=== PATIENT | male | born 1980 | race Two or more races ===

== ENCOUNTER 2021-02-17 11:02 | Outpatient (RCR) | payer OTHER, SELFPAY | END 2021-05-02 23:59 | LOC: IMMUN 11:02 | PROVIDERS: Referring Provider Family Medicine; Visit Provider Family Medicine | DX: Z23 Encounter for immunization (principal) | CPT/HCPCS: 0001A; 0002A; 91300 ==

== ENCOUNTER 2023-11-10 20:25 | Emergency (ER) | payer BC, SELFPAY ==
[2023-11-10 20:26] VITALS: BP 173/94; PULSE 116; RESP 16; TEMP 37.3; O2SAT 96; BMI 28.3
--- NOTE | 2023-11-10 22:28 | RAD_ITS ---
STUDY: X-RAY - UNILATERAL RIBS ( LEFT ) WITH CHEST REASON FOR EXAM: Male, 43 years old. L chest pain TECHNIQUE - RIBS: 4 view(s) of the ribs. TECHNIQUE - CHEST: PA COMPARISON: None. FINDINGS - RIBS: Normal visualized ribs without a demonstrated fracture. FINDINGS - CHEST: The lungs are clear and expanded. There is no demonstrated pleural abnormality. Normal size heart. Normal mediastinum and juan. Normal visualized pulmonary arteries. Normal visualized aortic arch and descending thoracic aorta. Normal visualized thoracic spine. Normal visualized ribs, clavicles, and shoulders. There is no demonstrated abnormality of the visualized soft tissue structures of the upper abdomen. RAD/Ribs Uni Min 3V w/PA Chest IMPRESSION: RIBS: Normal x-ray examination of the ribs. CHEST: Normal x-ray examination of the chest. Electronically Signed: Angel Noel MD at 22:43 EST Reading Location ID and State: [facility] / [place] Tel , Service support ,
--- NOTE | 2023-11-10 22:58 | EDS_ITS ---
HPI History of Present Illness Chief Complaint: Chest Other Informant: patient Narrative Narrative: Couple hours prior to arrival, patient had sudden onset of left lateral chest pain then was felt like a popping on the inside, it is caudal to his axilla, he states this started suddenly while he was coughing. He has been coughing for 3 weeks, it has been getting better, he states he had bronchitis and it is mostly better, I given to his who now is sick with it. He denies any dyspnea but it hurts with a deep breath. No pain with movement. PFSH PFSH Medical History no medical history Home Medications naproxen 500 mg tablet 500 mg PO BID PRN #12 tabs 11/11/23 [Rx Last Taken Unknown] Allergy/AdvReac Type Severity Reaction Status Date / Time No Known Allergies Allergy Verified 11/10/23 20:28 Surgical History no surgical history Social History Smoking Status: Never smoker ROS ROS ED Constitutional Constitutional ED: Denies chills or fever(s) Eyes Eyes: Denies change in vision or diplopia ENT ENT ED: Denies rhinorrhea or sore throat Cardiovascular Cardiovascular: Reports chest pain; Denies palpitations Respiratory/Chest Respiratory/Chest: Reports cough; Denies dyspnea Gastrointestinal Gastrointestinal: Denies abdominal pain, diarrhea, nausea or vomiting Genitourinary Genitourinary ED: Denies dysuria or hematuria Musculoskeletal Musculoskeletal: Denies back pain or neck pain Integumentary Denies abscess or rash Neurologic Neurologic: Denies headache(s), paresthesias or weakness Psychiatric Psychiatric: Denies anxiety or suicidal thoughts EXAM Physical Exam Const Vital Signs: 11/10/23 20:26 11/10/23 23:23 Temperature 99.1 F Temperature Source Temporal Pulse Rate 116 H 87 Respiratory Rate 16 18 Blood Pressure 173/94 H 153/89 H Blood Pressure Mean 120 110 Pulse Ox 96 97 Oxygen Delivery Method Room Air Room Air Positive well nourished and well developed General Appearance ED: well developed and NAD HEENT Reports moist mucous membranes normocephalic and atraumatic Eyes PERRL and EOMs intact bilaterally Neck full ROM and supple Chest Wall inspection of chest normal and palpation of chest normal Chest Narrative: No reproducible tenderness in the area of interest Resp normal respiratory effort and clear to auscultation bilaterally Resp Narrative: Seems to be diminished left apex compared with the right posteriorly no splinting with deep inspiration lungs clear Cardio regular rate, regular rhythm and no murmurs Rate: tachycardic GI non-tender and non-distended Auscultation: normoactive bowel sounds Palpation: soft Back/Spine no CVA tenderness General Back: other FROM Extremity normal to inspection General Extremety ED: Negative for edema, pulses abnormal or tenderness General Extremity: Negative for edema or pulses abnormal Neuro oriented x3, CN's II-XII intact bilaterally and no sensory deficits noted Sensorium / Orientation: awake and alert Motor Exam: strength 5/5 throughout Skin no rashes or lesions noted and no wounds Heart Score History: Slightly/Non-Suspicious ECG: Normal Age: </= 45 years Risk Factors: No Risk Factors Troponin: </= Normal Limit Score: 0 MDM MDM MDM Narrative Medical decision making narrative: Given the initial exam my concern was for pneumothorax. And also in the differential is a rib fracture, subluxation, intercostal muscle strain, so since we were obtaining a chest x-ray I obtained a whole rib series. 5 views my interpretation including a PA chest is normal, radiology in agreement, no pneumothorax visible. He was upright for these x-rays. Given this and his resting tachycardia, as I discussed with the patient and pulmonary embolus in the differential diagnosis as well although I think less likely given the history, I think we should rule it out because of his tachycardia. EKG was obtained and my interpretation is normal except for sinus tachycardia. D-dimer and basic labs were obtained. This is all noted and normal including D-dimer ruling out pulmonary embolus. At this time, the diagnosis that makes the most sense here for the history is that there is an intercostal muscle strain. Supportive care advised, pleurisy in the differential diagnosis but the treatment would be the same. Will put him on a short course of anti- inflammatories and advised close outpatient follow-up. Initially hypertensive but on recheck he is better 150s, and after Toradol he is feeling better and heart rate improved to 80s. Lab Data Attestation: I reviewed the patient's lab results. Labs: Laboratory Results - last 24 hr 11/10/23 23:11 WBC 9.9 RBC 5.07 Hgb 15.2 Hct 47.2 MCV 93.1 MCH 30.0 MCHC 32.2 RDW Std Deviation 43.3 RDW Coeff of [place] 12.7 Plt Count 263 MPV 8.9 Immature Gran % (Auto) 0.700 Neut % (Auto) 61.1 Lymph % (Auto) 27.1 [place] % (Auto) 6.5 Eos % (Auto) 3.8 Baso % (Auto) 0.8 Absolute Neuts (auto) 6.1 Absolute Lymphs (auto) 2.68 Nucleated RBC % 0 D-Dimer Quant (PE/DVT) 0.29 Sodium 139 Potassium 4.1 Chloride 106 Carbon Dioxide 31.0 Anion Gap 2 L BUN 17 Creatinine 1.32 H Estim Creat Clear Calc 78.38 Est GFR (MDRD) Af Amer 76 Est GFR (MDRD) Non-Af 63 BUN/Creatinine Ratio 12.9 Glucose 110 H Calcium 8.9 Troponin I High Sens 5 Radiography Diagnostic Testing: Clinical Impression(s) from Imaging Studies Ribs w/Chest X-Ray 11/10/23 22:28 IMPRESSION: RIBS: Normal x-ray examination of the ribs. CHEST: Normal x-ray examination of the chest. Electronically Signed: Angel Noel MD at 22:43 EST Reading Location ID and State: [facility] / [place] Tel , Service support , Rhythm Strip Rhythm Strip: Sinus Tach Rate: 113 Ectopy: None EKG Initial EKG: Attestation: I personally reviewed and interpreted this EKG as follows: Interpretation: No Acute Injury Pattern and Sinus Tachycardia Discharge Plan Triage Chief Complaint: Chest Other ED Provider: Roshan Gage Dx/Rx/DC Orders Clinical Impression: Intercostal muscle strain, Bronchitis Instructions: ED Chest Wall Strain Prescriptions: New naproxen 500 mg tablet 500 mg PO BID PRN Qty: 12 0RF Primary Care Provider: Dax Emmanuel Referrals: Dax Emmanuel MD [Primary Care Provider] - 1 Week if not improving Disposition Disposition: Home, Self Care
--- NOTE | 2023-11-10 23:00 | EKG12_ITS ---
Test Reason : CHEST DISCOMFORT Blood Pressure : / mmHG Vent. Rate : 113 BPM Atrial Rate : 113 BPM P-R Int : 126 ms QRS Dur : 082 ms QT Int : 308 ms P-R-T Axes : 060 056 024 degrees QTc Int : 422 ms Sinus tachycardia Otherwise normal ECG Confirmed by ALYSIA WALSH, DEREK ([id number]), health editor MARILYN PUGA ([id number]) on 11/11/2023 1:08:12 PM Referred By: Roshan Gage Confirmed By:DEREK HATFIELD MD
[2023-11-10] MEDS: Ketorolac 30 MG/ML Syringe IV (23:10)
[2023-11-10 23:19] LABS: Absolute Lymphocyte Count 2.68 X10^3/uL (0.83-4.51); Absolute Neutrophil Count 6.1 X10^3/uL (2.0-7.7); Basophil# 0.08 X10^3/uL; Basophil% 0.8 % (0-1); Eosinophil# 0.38 X10^3/uL; Eosinophils% 3.8 % (0-5); Hematocrit 47.2 % (40-54); Hemoglobin 15.2 g/dL (13.0-16.5); Lymphocyte # 2.68 X10^3/ul (0.83-4.51); Lymphocyte % 27.1 % (19-41); Mean Corp Hgb Conc 32.2 g/dL (32-36); Mean Corpuscular Volume 93.1 fL (80-94); Mean Platelet Vol. 8.9 fl (6.2-12.0); Monocyte# 0.64 X10^3/uL; Monocyte% 6.5 % (0-10); NRBC Flagged by Analyzer 0 % (0-5); Neutrophil # 6.05 X10^3/uL (2.7-7.7); Neutrophil % 61.1 % (47-70); Platelet Count 263 K/mm3 (150-450); RBC Distribution Width CV 12.7 % (11.6-14.6); RBC Distribution Width SD 43.3 fl (35.1-43.9); Red Blood Count 5.07 M/mm3 (4.6-6.2); White Blood Count 9.9 K/mm3 (4.4-11.0)
[2023-11-10 23:23] VITALS: BP 153/89; PULSE 87; RESP 18; O2SAT 97
[2023-11-10 23:30] LABS: D-Dimer Quantitative (DVT/PE) 0.29 FEU/ug/m (0.27-0.49)
[2023-11-10 23:35] LABS: Anion Gap 2 (5-15); BUN 17 mg/dL (7-18); BUN/Creat Ratio 12.9 RATIO (10-20); Calcium,Total 8.9 mg/dL (8.5-10.1); Chloride 106 mmol/L (98-107); Creatinine, Serum 1.32 mg/dL (0.70-1.30); EST Glomerular Filtration Rate 63 mL/min (>60); Est Glom Filt Rate - Afr Amer 76 mL/min (>60); Estimated Creatinine Clearance 78.38 ml/min; Glucose 110 mg/dL (74-106); Potassium 4.1 mmol/L (3.5-5.1); Sodium Level 139 mmol/L (136-145); Troponin-I HS 5 pg/mL (3.0-78.0)
[2023-11-11 00:34] VITALS: BP 136/89; PULSE 86; RESP 20; O2SAT 97
== END 2023-11-11 00:35 | disposition home or self-care (01) ==
PROVIDERS: Emergency Provider Emergency Medicine; PCP Family Medicine; Referring Provider Emergency Medicine; Visit Provider Emergency Medicine
DX: S29.011A Strain of muscle and tendon of front wall of thorax, initial encounter (principal); J40 Bronchitis, not specified as acute or chronic; X58.XXXA Exposure to other specified factors, initial encounter
CPT/HCPCS: 71101; 80048; 84484; 85025; 85379; 93005; 96374; 99283; A4216

== ENCOUNTER 2025-11-21 13:26 | Emergency (ER) | payer BC, SELFPAY ==
[2025-11-21 13:26] VITALS: BP 161/94; PULSE 92; RESP 16; TEMP 36.4; O2SAT 100
[2025-11-21 14:26] VITALS: BP 138/91; PULSE 79; RESP 19; O2SAT 99
[2025-11-21 14:38] VITALS: BMI 27.6
--- NOTE | 2025-11-21 14:55 | EDS_ITS ---
HPI History of Present Illness Chief Complaint: Chest Pain Informant: patient Onset/Context/Timing Onset: Days (2) Activity at onset: gradual Timing: Intermittent Quality: Positive for Dull and Heaviness Location: Left Chest and - (Left scapular area) Worsened By: Nothing Relieved By: Nothing Associated Symptoms: Positive for Lightheadedness and Acid Reflux; Negative for Nausea, Vomiting, Diaphoresis, Dyspnea, Cough, Fever or Palpitations Narrative Narrative: Patient presents with chest pain that has been intermittent over the past 2 days. Patient states it comes on gradually. Patient describes it as dull and heavy. Patient states it is over the left side of his chest and radiates to his left scapular area. Patient states nothing makes it better and nothing makes it worse. Patient admits to some lightheadedness. Patient also admits to some tingling in both of his arms. Patient also admits to some decreased appetite. Patient admits to some gastroesophageal reflux symptoms. Patient denies any fevers or chills. CVD Risk Factors: Negative for Hypertension, Diabetes, Hypercholesterolemia, Family History 1' </=55 or Smoking PE Risk Factors: Negative for Recent Travel/Surgery, Recent Immobilization, Prior DVT or PE, Cancer or OCP + Smoking + >/=35 PFSH PFSH Medical History no medical history no medical history Home Medications ?Medication ?Instructions ?Recorded ?Last Taken ?Type naproxen 500 mg tablet 500 mg PO BID PRN #12 tabs 1 01/12/23 Unknown Rx Allergy/AdvReac Type Severity Reaction Status Date / Time No Known Allergies Allergy Verified 11/21/25 13:26 Family History no significant family his Surgical History no surgical history no surgical history Social History (Updated 11/21/25 @ 15:[address] Tyler Perry, DO) Smoking Status: Never smoker alcohol intake: current alcohol intake frequency: 0-2 drinks per day ROS ROS ED Constitutional Constitutional ED: Denies chills or fever(s) Eyes Eyes: Reports blurry vision; Denies diplopia ENT ENT ED: Denies rhinorrhea or sore throat Cardiovascular Cardiovascular: Reports chest pain; Denies palpitations Respiratory/Chest Respiratory/Chest: Denies cough or dyspnea Gastrointestinal Gastrointestinal: Denies nausea or vomiting Genitourinary Genitourinary ED: Reports urinary frequency; Denies dysuria or hematuria Musculoskeletal Musculoskeletal: Reports back pain; Denies neck pain Integumentary Denies abscess or rash Neurologic Neurologic: Reports headache(s); Denies weakness Allergic/Immunologic Allergic/Immunologic ED: Denies mouth swelling or urticaria EXAM Physical Exam Const Vital Signs: 11/21/25 13:26 11/21/25 14:26 11/21/25 14:37 Temperature 97.6 F L Temperature Source Temporal Pulse Rate 92 79 Respiratory Rate 16 19 H Respiratory Effort Normal Non-Labored Blood Pressure 161/94 H 138/91 H Blood Pressure Mean 116 106 Pulse Ox 100 99 Oxygen Delivery Method Room Air Room Air 11/21/25 15:11 11/21/25 15:11 11/21/25 16:03 Temperature Temperature Source Pulse Rate 77 71 Respiratory Rate 16 Respiratory Effort Blood Pressure 139/83 H 132/87 H Blood Pressure Mean 101 102 Pulse Ox 98 Oxygen Delivery Method Room Air Room Air 11/21/25 17:09 Temperature Temperature Source Pulse Rate 70 Respiratory Rate 19 H Respiratory Effort Blood Pressure 132/87 H Blood Pressure Mean 102 Pulse Ox 100 Oxygen Delivery Method Room Air Positive well nourished and well developed Constitutional Narrative: BMI is 27.7. General Appearance ED: well developed and NAD HEENT Reports moist mucous membranes normocephalic and atraumatic Neck supple and no JVD Chest Wall inspection of chest normal and palpation of chest normal Resp normal respiratory effort and clear to auscultation bilaterally Cardio regular rate and regular rhythm GI soft to palpation, non-tender and non-distended Extremity normal to inspection General Extremety ED: Negative for edema or tenderness General Extremity: Negative for edema Neuro oriented x3, CN's II-XII intact bilaterally and no sensory deficits noted Sensorium / Orientation: awake and alert Motor Exam: strength 5/5 throughout Psych mental status grossly normal Heart Score History: Slightly/Non-Suspicious ECG: Normal Age: >45 - <65 years Risk Factors: No Risk Factors Troponin: </= Normal Limit Score: 1 MDM MDM MDM Narrative Medical decision making narrative: Differential diagnosis includes cardiac dysrhythmia, cardiac ischemia, pneumonia, bronchitis, pulmonary embolism, electrolyte abnormality, dehydration, gastroesophageal reflux disease, and anxiety. EKG will be obtained to assess for cardiac dysrhythmia and cardiac ischemia. Chest x-ray will be obtained to assess for pneumonia and bronchitis. CBC will be obtained to assess for leukocytosis and anemia. Basic metabolic profile will be obtained to assess for electrolyte abnormality renal function. High-sensitivity troponin will be obtained to assess for cardiac ischemia. 2-hour repeat high-sensitivity troponin will be obtained to assess for ongoing cardiac ischemia. History & Record Review Additional record(s) reviewed:: Prior ED visit and Prior labs Lab Data Attestation: I reviewed the patient's lab results. Lab results narrative: CBC was reviewed and was within normal limits. Basic metabolic profile was reviewed and was within normal limits. Initial high-sensitivity troponin was reviewed and was less than 6. D-dimer was reviewed and was 0.27. Urinalysis was reviewed. There are 5-10 white blood cells with plus bacteria. Leukocyte esterase was negative. 2-hour repeat high-sensitivity troponin was reviewed and was normal at 6. Labs: Laboratory Results - last 24 hr 11/21/25 11/21/25 11/21/25 14:32 16:20 17:04 WBC 7.4 RBC 5.13 Hgb 15.9 Hct 46.0 MCV 89.7 MCH 31.0 MCHC 34.6 RDW Std Deviation 42.3 RDW Coeff of [place] 12.8 Plt Count 268 MPV 9.6 Immature Gran % (Auto) 0.300 Neut % (Auto) 66.7 Lymph % (Auto) 24.1 [place] % (Auto) 6.1 Eos % (Auto) 2.3 Baso % (Auto) 0.5 Absolute Neuts (auto) 4.9 Absolute Lymphs (auto) 1.77 Nucleated RBC % 0 D-Dimer Quant (PE/DVT) 0.27 Sodium 137 Potassium 4.2 Chloride 101 Carbon Dioxide 26.6 Anion Gap 10 BUN 14 Creatinine 1.00 Estim Creat Clear Calc 101.31 Est GFR (MDRD) Non-Af 94 BUN/Creatinine Ratio 13.5 Glucose 90 Calcium 9.2 Troponin T High Sens < 6 Troponin T Hi Sens 2 Hr 6 Urine Color Straw Urine Clarity Clear Urine pH 6.5 Ur Specific [place] 1.020 Urine Protein Negative Urine Glucose (UA) Normal Urine Ketones Negative Urine Occult Blood Negative Urine Nitrite Negative Urine Bilirubin Negative Urine Urobilinogen 1 H Ur Leukocyte Esterase Negative Urine RBC 0-5 SEEN Urine WBC 5-10 SEEN Ur Squamous Epith Cells 0-5 SEEN Urine Bacteria 1+ Urine Mucus 0 SEEN Radiography Chest X-Ray - ED: 2 View, Read by ED Physician, Read by Radiologist and No Acute Disease Diagnostic Testing: Clinical Impression(s) from Imaging Studies Chest X-Ray 11/21/25 15:12 IMPRESSION: NO ACUTE FINDINGS. Reading Location: [facility] and lateral chest x-ray was obtained. There are 2 views. On my independent interpretation, lung lara are clear. There is normal cardiac silhouette. Bony thorax is normal. There is no acute process noted. Radiologist also interpreted the x-ray and agrees. EKG Initial EKG: Attestation: I personally reviewed and interpreted this EKG as follows: Interpretation: Sinus Rhythm (80) and No Acute Injury Pattern Comments: EKG was obtained. On my independent interpretation, it showed a normal sinus rhythm with a rate of 80. MN interval, QRS interval, and QTc intervals were all normal. [place] was normal. There are no acute ST or T wave changes. Prior EKG tracings: available for review Prior: Unchanged (11/10/2023) Additional Tests and Interventions Additional Tests or Interventions: Urine culture was ordered. Treatment and Re-Evaluation :: Patient was given aspirin. Patient was feeling better on reevaluation. Patient was advised of his findings. Patient has a HEART score of 1. Patient was advised that this is low risk for acute cardiac event. Patient was instructed to follow-up with his primary care physician in 5 to 7 days. Patient was instructed to return if worse in any way. Patient understood and was agreeable with the plan. All questions were answered. Discharge Plan Triage Chief Complaint: Chest Pain ED Provider: Tyler Perry Dx/Rx/DC Orders Clinical Impression: Chest pain, Elevated blood pressure reading Instructions: ED Chest Pain, Uncertain Cause Prescriptions: No Action naproxen 500 mg tablet 500 mg PO BID PRN Qty: 12 0RF Primary Care Provider: Dax Emmanuel Referrals: Lew Lenz MD [[facility]] - 5-7 Days Print Language: Marshallese Disposition Disposition: Home, Self Care
[2025-11-21 15:11] VITALS: BP 139/83; PULSE 77; RESP 16; O2SAT 98
--- NOTE | 2025-11-21 15:11 | EKG12_ITS ---
Test Reason : CHEST PAIN Blood Pressure : */* mmHG Vent. Rate : 90 BPM Atrial Rate : 90 BPM P-R Int : 128 ms QRS Dur : 80 ms QT Int : 330 ms P-R-T Axes : 57 30 44 degrees QTcB Int : 403 ms Normal sinus rhythm Artifact present Confirmed by Peña Wakefield ([id number]), editorial intern MARILYN PUGA ([id number]) on 11/23/2025 10:06:25 AM Referred By: Confirmed By: Peña Wakefield
--- NOTE | 2025-11-21 15:12 | RAD_ITS ---
PROCEDURE: CHEST PA AND LATERAL 11/21/2025 REASON FOR EXAM: CHEST PAIN TECHNIQUE: Procedure Code: RADCXR Modality: DX Procedure: CHEST PA AND LATERAL COMPARISON: 11/10/2023 chest x-ray FINDINGS: Hardware: None Heart: The heart size is normal. Mediastinum: The mediastinal contour is unremarkable. Lungs: The lungs are clear. Bones: The bones are unremarkable. RAD/Chest PA and Lateral IMPRESSION: NO ACUTE FINDINGS. Reading Location: [facility]
--- NOTE | 2025-11-21 15:15 | EKG12_ITS ---
Test Reason : Blood Pressure : */* mmHG Vent. Rate : 80 BPM Atrial Rate : 80 BPM P-R Int : 140 ms QRS Dur : 98 ms QT Int : 370 ms P-R-T Axes : 56 15 32 degrees QTcB Int : 426 ms Normal sinus rhythm Normal ECG Confirmed by Peña Wakefield ([id number]), food expeditor MARILYN PUGA ([id number]) on 11/23/2025 9:54:03 AM Referred By: Confirmed By: Peña Wakefield
[2025-11-21 15:29] LABS: Hematocrit 46.0 % (40-54); Hemoglobin 15.9 g/dL (13.0-16.5); Immature Granulocytes Count 0.020 X10^3/uL (0.0-0.0); Mean Corp Hgb Conc 34.6 g/dL (32-36); Mean Corpuscular Volume 89.7 fL (80-94); Mean Platelet Vol. 9.6 fl (6.2-12.0); NRBC Flagged by Analyzer 0 % (0-5); Platelet Count 268 K/mm3 (150-450); RBC Distribution Width CV 12.8 % (11.6-14.6); RBC Distribution Width SD 42.3 fl (35.1-43.9); Red Blood Count 5.13 M/mm3 (4.6-6.2); White Blood Count 7.4 K/mm3 (4.4-11.0)
--- OUTSIDE RECORDS SUMMARY | 2025-11-21 15:29 | XMS RPT_ITS | CCD ---
Author Organization [facility] Care Team Providers Care Renal Case Manager Name Role Phone Lien WALSH, Lew Mane Primary Care Provider Coleman Hutchison MD Primary Care Provider COLEMAN HUTCHISON Attending Unavailable SIDDHARTH, COLEMAN Primary Care Unavailable COLEMAN HUTCHISON Attending Unavailable SIDDHARTH, COLEMAN Primary Care Unavailable BASIAIN, COLEMAN Referring Unavailable BASIAIN, COLEMAN Primary Care Unavailable BASIAIN, COLEMAN Primary Care Unavailable CALEB MORRIS Attending Unavailable CAROL ANN CORTEZ Referring Unavailable BASIAIN, COLEMAN Primary Care Unavailable DUNG LYNNE Attending Unavailable BASIAIN, COLEMAN Primary Care Unavailable CAROL ANN CORTEZ Attending Unavailable COLEMAN HUTCHISON Referring Unavailable BASIAIN, COLEMAN Primary Care Unavailable SIDDHARTH, COLEMAN Referring Unavailable Lew Chavira Primary Care Unavaila ble Assessment, Health Risk Attending Unavaila ble Allergies Allergy Classification Reported Allergen(s) Allergy Type Date of Onset Reaction(s) Facility (14 sources) Seasonal allergy; Translations: [SEASONAL ALLERGIES] Allergy to substance 4 Other: See Comments [facility] Medications Current Medications Medication Drug Class(es) Dates Sig (Normalized) Sig (Original) [id number] 200 actuat albuterol 0.09 mg/actuat metered dose inhaler (12 sources) beta2-Adrenergic Agonist Start: 3 take 2 puff(s) by inhalation every four hours as needed for wheezing albuterol HFA (VENTOLIN HFA) 90 mcg/actuation inhaler Inhale 2 Puffs as instructed every 4 hours as needed for wheezing/shortness of breath. 8.5 g 10/14/2023 Active Comment on above: Inhale 2 Puffs as in structed every 4 hours as needed for wheezing/shortness of breath. methylPREDNISolone (1 source) Corticosteroid Start: 5 End: 5 methylPREDNISolone (MEDROL, JONY,) 4 mg Dose-Pack Take as instructed per package. 21 tablet 06/09/2025 06/15/2025 Active MULTIVITAMIN ORAL (12 sources) MULTIVITAMIN ORA L Take by mouth. Active MULTIVITAMIN ORA L Take by mouth. 0 Active Comment on above: Take by mouth. naproxen 500 mg oral tablet (1 source) Nonsteroidal Anti-inflammatory Drug Start: 11-11-20 take 500 mg by mouth twice daily as needed Naproxen Active 500 MG PO TWICE DAILY NEEDED November 11, 2023 12:00am polyethylene glycol 3350 [id number] mg / potassium chloride 2970 mg / sodium bicarbonate 6740 mg / sodium chloride 5860 mg / sodium sulfate 24031 mg powder for oral solution (1 source) Osmotic Laxative Start: 05-19-20 End: 05-19-20 peg 3350-Electrolytes (GOLYTELY) 236-22.74-6.74 -5.86 gram suspension Indications: Colon cancer screening Take 4,000 mL by mouth one time only for 1 dose. Refer to printed prep instructions from your provider. 4000 mL 05/19/2025 05/19/2025 Active predniSONE 20 mg oral tablet (1 source) Start: 10-31-20 End: 11-04-20 take 2 tablets by mouth once daily at mealtime predniSONE (DELTASONE) 20 mg tablet Take 2 tablets by mouth once daily for 4 days. Take daily with food. 8 tablet 0 10/31/2023 11/04/2023 Active Comment on above: Take [address] [facility] once daily for 4 days. Take daily with food. tobramycin 3 mg/ml ophthalmic solution (2 sources) Aminoglycoside Antibacterial Start: 04-12-20 End: 04-19-20 take 2 drop(s) into the eye(s) three times daily tobramycin (TOBREX) 0.3 % ophthalmic solution Use 2 Drops in the left eye three times a day for 7 days. 10 mL 0 04/12/2024 04/19/2024 Active Completed/Discontinued Medications Medication Drug Class(es) Dates Sig (Normalized) Sig (Original) benzonatate 100 mg Palpations: Abdomen is soft. Tenderness: There is no abdominal tenderness. Musculoskeletal: General: Normal range of motion. Cervical back: Normal range of motion and neck supple. Skin: General: Skin is warm and dry. Coloration: Skin is not jaundiced. Neurological: General: No focal deficit present. Mental Status: He is alert and oriented to person, place, and time. Psychiatric: Mood and Affect: Mood normal. Behavior: Behavior normal. Thought Content: Thought content normal. Judgment: Judgment normal. Assessment/Plan (Z12.11) Encounter for screening colonoscopy (primary encounter diagnosis) 1. Encounter for screening colonoscopy (Primary) -- Patient due for colonoscopy, has never had a colonoscopy. Order placed. - COLONOSCOPY SCREENING; Future Follow up in office PRN. Recommended to please call office/go to ER if fever, chills, chest pain, SOB, diarrhea, nausea, emesis, worsening abdominal pain, dehydration occurs I spent a total of 15 minutes on the date of the service which included preparing to see the patient, [id number] patient care, completing clinical documentation, obtaining and/or reviewing separately obtained history, performing a medically appropriate examination, counseling and educating the patient/family/caregiver, and ordering medications, tests, or procedures. Carol Ann Cortez PA-C May 26, 2025 9:44 AM [facility] 05-26-2025 History of Presen t illness Narrative CHIEF COMPLAINT: Patient presents with: Colonoscopy consult This consult was requested by Coleman Hutchison MD for an opinion regarding colonoscopy consult. My final recommendations will be communicated to the requesting health care provider by way of the shared medical record for internal providers or letter via the [employer] for external providers. HPI: Fela Buckley is a 44 year old male who presents for Colonoscopy consult. Patient is here today for a screening colonoscopy consult. Denies GI symptoms today including changes in bowel habits, rectal bleeding, abdominal pain. No smoking. Social alcohol use. No pertinent GI family hx. Record Review: [facility] / Outside records reviewed. PAST MEDICAL HISTORY Diagnosis Date NEGATIVE MEDICAL HISTORY PAST SURGICAL HISTORY Procedure Laterality Date NONE Allergies: ALLERGIES Allergen Reactions Seasonal Allergies Other: See Comments Sneezing, nasal congestion Medications: albuterol HFA (VENTOLIN HFA) 90 mcg/actuation inhaler Inhale 2 Puffs as instructed every 4 hours as needed for wheezing/shortness of breath. MULTIVITAMIN ORAL Take by mouth. FAMILY HISTORY Problem Relation Age of Onset Diabetes Mother Stroke Mother Lung Cancer Mother non small lung other (congestive heart failure) Mother Stroke Father None Sister None Sister Colon Cancer No Family History Employer And Job Title: None on file Years Of Education Completed: Not specified Marital Status: Social History Tobacco Use Smoking status: Never Smokeless tobacco: Never Vaping Use Vaping status: Never Used Substance Use Topics Alcohol use: Yes Alcohol/week: 4.0 standard drinks of alcohol Types: 4 Cans of Beer (12oz) per week Comment: occasional Drug use: No Review of Systems: Review of Systems All other systems reviewed and are negative. Are you taking any blood thinners? No Physical Examination: BP 122/76 Pulse 90 Ht 6' 0 (1.83m) Wt 201 lb (91.2kg) SpO2 98% BMI 27.25 kg/(m^2). Physical Exam Constitutional: Appearance: Normal appearance. HENT: Head: Normocephalic and atraumatic. Eyes: General: No scleral icterus. Extraocular Movements: Extraocular movements intact. Conjunctiva/sclera: Conjunctivae normal. Pupils: Pupils are equal, round, and reactive to light. Cardiovascular: Rate and Rhythm: Normal rate and regular rhythm. Pulses: Normal pulses. Heart sounds: Normal heart sounds. Pulmonary: Effort: Pulmonary effort is normal. Breath sounds: Normal breath sounds. Abdominal: General: Abdomen is flat. Bowel sounds are normal. Palpations: Abdomen is soft. Tenderness: There is no abdominal tenderness. Musculoskeletal: General: Normal range of motion. Cervical back: Normal range of motion and neck supple. Skin: General: Skin is warm and dry. Coloration: Skin is not jaundiced. Neurological: General: No focal deficit present. Mental Status: He is alert and oriented to person, place, and time. Psychiatric: Mood and Affect: Mood normal. Behavior: Behavior normal. Thought Content: Thought content normal. Judgment: Judgment normal. Assessment/Plan (Z12.11) Encounter for screening colonoscopy (primary encounter diagnosis) 1. Encounter for screening colonoscopy (Primary) -- Patient due for colonoscopy, has never had a colonoscopy. Order placed. - COLONOSCOPY SCREENING; Future Follow up in office PRN. Recommended to please call office/go to ER if fever, chills, chest pain, SOB, diarrhea, nausea, emesis, worsening abdominal pain, dehydration occurs I spent a total of 15 minutes on the date of the service which included preparing to see the patient, [id number] patient care, completing clinical documentation, obtaining and/or reviewing separately obtained history, performing a medically appropriate examination, counseling and educating the patient/family/caregiver, and ordering medications, tests, or procedures. Carol Ann Cortez PA-C May 26, 2025 9:44 AM documented in this encounter [facility] 05-19-2025 Instructions Coleman Hutchison MD - 05/19/2025 3:09 PM EDT COLONOSCOPY BOWEL PREPARATION INSTRUCTIONS GOLYTELY/NULYTELY/TRILYTE/COLYTE Your doctor has scheduled you for a colonoscopy. To have a successful colonoscopy, you must have a clean colon, that is empty. A clean colon allows your doctor to see the entire colon & diagnose issues like polyps or cancer. For doctors, a clean colon is like driving on a yair day; a dirty colon like driving in a storm. It is very important that you follow these instructions exactly, or your colonoscopy might not be as effective, could be canceled, and you may need to do the bowel prep and the colonoscopy again. TRANSPORTATION REQUIREMENTS You are receiving IV sedation. For your safety, a responsible adult escort must accompany you to and from your procedure: Your adult escort MUST be present with you at check-in for your colonoscopy. Your adult escort MUST remain in the endoscopy area until you are discharged. Your adult escort MUST transport you home once you are discharged. You are NOT allowed to operate any form of transportation (i.e. drive a car, bicycle, etc.) or leave the Endoscopy Center ALONE. It is not safe to do so. If you cannot meet these requirements, your procedure will be canceled. MEDICATION REQUIREMENTS For your safety, certain medications will need to be stopped or adjusted before you can have your procedure: BLOOD THINNERS: If you take blood thinners, such as Coumadin (warfarin), Plavix (clopidogrel), Ticlid (ticlopidine hydrochloride), Agrylin (anagrelide), Xarelto (Rivaroxaban), Pradaxa (Dabigatran), Eliquis (Apixaban), or Effient (Prasugrel), contact the physician who is prescribing these medications at least 2 weeks prior to your procedure to discuss any necessary adjustments. DIABETES: If you take medications for diabetes, your dosage may need to be adjusted. If you are being treated for diabetes with insulin, diabetic pills, or other injectable medications do not take your REGULAR dose after midnight on the day of your procedure. If you are taking any other types of insulin such as Lantus, Humalog, NPH (long-acting insulin), or 70/30 insulin, take half your normal dose the day before your procedure. DIABETES/WEIGHT MANAGEMENT: If you take medications for weight-loss, your dosage may need to be adjusted Contact the doctor who prescribes this medication for further instructions. If you take medications for weight-loss like semaglutide (Ozempic, Wegovy, Rybelsus), dulaglutide (Trulicity), liraglutide (Victoza, Saxenda), exenatide (Byetta, Bydureon), or lixisenatide (Adylyxin), stop your medication 1 week prior to your procedure. If you take medications like canagliflozin (Invokana), dapagliflozin (Farxiga, Forxiga), empagliflozin (Jardiance), stop your medication 3 days prior to your procedure. If you take ertugliflozin (Steglatro) stop your medication 4 days prior to your procedure. IRON: If you take iron pills, STOP them 1 week BEFORE your procedure, may resume after. OTHER MEDS: May take all other medications (including aspirin, antibiotics, water pills / diuretics like Lasix or Metolozone, blood pressure meds, etc.) at their usual scheduled time with a sip of water. DIET REQUIREMENTS The day before your colonoscopy, you may have a clear liquid diet (see below). The day of your colonoscopy, you may continue a clear liquid diet until 3 hours before your colonoscopy. Within 3 hours of your colonoscopy, take only any medications (as above) with a sip of water. Clear Liquid Diet Broth (chicken, beef or vegetable broth or bullion. Just the broth, no solids). Water Coffee or Tea (NO milk or creamer), but sugar and sugar substitutes are allowed. Clear liquids including clear, yellow, green, blue (NO red, NO orange, NO purple) Sodas / soft drinks Gatorade or other sports drinks Yves-Aid or flavored drinks Plain Jell-O or other gelatins Fruit juice (strained; no-pulp) Popsicles or hard candy BOWEL PREPARATION (GOLYTELY/NULYTELY/TRILYTE/COLYT E) Split Dosing Bowel Prep: This means drinking your bowel prep in two doses. Split dosing helps clean your colon better and makes it less likely that your procedure will be canceled. Fill your prescription for Golytely/Nulytely/Trilyte/Colyte : The afternoon before your colonoscopy, mix the solution and refrigerate. You may add the flavor pack (if present) that came with the bowel preparation. Do not add ice, sugar, or other flavorings to the solution. You will drink your prep in two doses, by several hours. On the evening before your colonoscopy: 1. 6 PM drink the first half of the bowel preparation solution. Drink one 8-ounce glass every 15 minutes. 2. Six hours before your colonoscopy, drink the second half of the solution. Drink one 8-ounce glass every 15 minutes. 3. You may continue a clear liquid diet until 3 hours before your colonoscopy. Bowel prep can work differently from person to person. Some people's bowels move slowly and they may need different instructions. Please see your doctor in office or virtually for personalized bowel prep instructions if you have: Medical condition that needs special accommodations Had a poor bowel prep results or failed bowel prep attempts in the past. Had difficulty with anesthesia during the procedure. FREQUENTLY ASKED QUESTIONS Q: What if I suffer from constipation? A: Recommend taking extra laxatives to resolve your constipation days prior to entering the bowel prep day. Q: What if have had prior poor preps results in past? A: Contact your physician as you will likely need additional bowel prep instructions. Q: What if I have motility issues like Parkinson's, MS (multiple sclerosis), wheelchair dependent, etc.? or on medications that slow bowel emptying (narcotics, gabapentin, anticholinergic medications etc.) A: Contact your physician as you will likely need extra time and additional laxatives to complete your bowel prep. Q: What if I cannot drink large volume of liquid? A: Start your prep 2-3 hours earlier to allow yourself more time to complete the entire prep. Q: What if I can't finish my bowel prep? A: If you cannot finish your entire bowel prep, it is likely that your colonoscopy will need to be rescheduled due to poor prep quality. Q: What if I had bariatric surgery? Do I still have to complete the entire prep? A: Yes, gastric bypass surgery involves the stomach & small bowel. You may need to drink smaller amounts, slower (may need more time to complete your bowel prep). Gastric bypass does not alter the length of your colon so you will need to complete the entire bowel prep, it may just take longer time to complete it. Q: What if I am on dialysis? A: Please consult your [facility] kay stitcher prior to scheduling to get instructions pertinent to you. In general, dialysis patients take the Golytely bowel prep and have the procedure same day of their dialysis (colonoscopy in AM, dialysis in PM). Q: How do I know if something is considered as clear liquid diet? A: If you can pour it in a glass and you can see through it, it is considered clear liquid Q: Can I eat nuts, seeds, beans, popcorn, dried fruits, vegetables & fruits that have skin peel? A: No, you will need to not eat these items starting 3 days prior to procedure. Q: Can I take Uber/Lyft/taxi/bus home? A: An adult MUST be present with you at check-in for your colonoscopy and remain in the endoscopy area until you are discharged. You can take Uber home only if this adult escort is with you at check in, remain in the endoscopy area until you are discharged, and takes the Uber with you to home. Q: Can I sleep it off here and drive myself home? A: No, you must have an adult with you at time of procedure check in, remain in the endoscopy center during your procedure, and drive you home. You cannot drive a vehicle after your procedure the rest of the day. documented in this encounter [facility] 04-14-2025 Note HNO ID: [id number] Author: COLEMAN HUTCHISON MD Service: ? Author Type: Physician Type: Progress Notes Filed: 04/14/2025 16:24 Note Text: FAMILY MEDICINE OFFICE NOTE [facility] Fela Buckley is a 44 year old male. Chief Complaint Follow Up ACTIVE PROBLEM LIST Bronchitis Intercostal Muscle Strain Elevated Blood Pressure Reading Without Diagnosis of Hypertension Low Hdl (Under 40) PAST MEDICAL HISTORY Diagnosis Date NEGATIVE MEDICAL HISTORY PAST SURGICAL HISTORY Procedure Laterality Date NONE FAMILY HISTORY Problem Relation Age of Onset Diabetes Mother Stroke Mother Lung Cancer Mother non small lung other (congestive heart failure) Mother Stroke Father None Sister None Sister SOCIAL HISTORY No social history on file. ALLERGIES Allergen Reactions Seasonal Allergies Other: See Comments Sneezing, nasal congestion MEDICATIONS: albuterol HFA (VENTOLIN HFA) 90 mcg/actuation inhaler Inhale 2 Puffs as instructed every 4 hours as needed for wheezing/shortness of breath. MULTIVITAMIN ORAL Take by mouth. Allergies, past surgical history, family history and past medical history were reviewed per this encounter. Medications were reviewed and verified. 03/11/2025 04/14/2025 INTAKE PAIN ASSESSMENT Are you having pain associated with your visit today? Yes, Provider notified No Pain Level 3 Pain Location Abdomen-Left Lower Quadrant Description Aching Frequency Intermittent Intervention/Comfort measure Medication If pain assessment is 0, no action needed. If pain assessment is positive, please see assessment and plain. ALFIE Pompa is a 44-year-old male presenting for lab review and follow up of elevated blood pressure. Patient was last seen in this office on 03/11/2025. Elevated Blood Pressure Readings: - Home blood pressure readings consistently in the 130s-140s mmHg, with occasional readings in the 150s mmHg. - Using a regular-sized cuff at home, which he says feels like it may be too small. - Denies chest pain, dyspnea, or dizziness. Dyslipidemia: - Reports being told that cholesterol levels are a little high and HDL is low in the past. - Discussed recent blood work which showed mildly elevated LDL and low HDL. - Inquires about dietary modifications to improve HDL levels. The 10-year ASCVD risk score (Rizwan RAJAN, et al., 2019) is: 3% Values used to calculate the score: Age: 44 years Sex: Male Is Non- : No Diabetic: No Tobacco smoker: No Systolic Blood Pressure: 121 mmHg Is BP treated: No HDL Cholesterol: 28 mg/dL Total Cholesterol: 173 mg/dL Recording using ambient [employer] software for draft documentation of the visit was discussed with the patient/authorized front office representative; all questions welcomed and answered. Patient/authorized front office representative agreed to proceed Review of Systems Constitutional: Negative for chills, fever and unexpected weight change. Eyes: Negative for visual disturbance. Respiratory: Negative for cough and shortness of breath. Cardiovascular: Negative for chest pain and palpitations. Gastrointestinal: Negative for abdominal pain, blood in stool, constipation, diarrhea, nausea and vomiting. Genitourinary: Negative for difficulty urinating. Skin: Negative for rash. Neurological: Negative for dizziness, light-headedness and headaches. All other systems reviewed and are negative. Objective BP 121/72 (BP Site: Right Arm, BP Position: Sitting, BP Cuff Size: Large Adult) Pulse 76 Temp 37.2 ?C (99 ?F) (Temporal) Ht 184.2 cm (6' 0.5) Wt 92.5 kg (204 lb) SpO2 98% BMI 27.29 kg/m? Physical Exam Vitals reviewed. Constitutional: General: He is not in acute distress. Appearance: Normal appearance. He is not ill-appearing, toxic-appearing or diaphoretic. HENT: Head: Normocephalic and atraumatic. Right Ear: External ear normal. Left Ear: External ear normal. Nose: Nose normal. Eyes: Extraocular Movements: Extraocular movements intact. Pupils: Pupils are equal, round, and reactive to light. Cardiovascular: Rate and Rhythm: Normal rate and regular rhythm. Pulses: Normal pulses. Heart sounds: Normal heart sounds. No murmur heard. No gallop. Pulmonary: Effort: Pulmonary effort is normal. No respiratory distress. Breath sounds: Normal breath sounds. No wheezing, rhonchi or rales. Abdominal: General: Abdomen is flat. There is no distension. Palpations: Abdomen is soft. Tenderness: There is no abdominal tenderness. There is no guarding or rebound. Musculoskeletal: General: No deformity or signs of injury. Normal range of motion. Cervical back: Normal range of motion. Skin: General: Skin is warm and dry. Neurological: General: No focal deficit present. Mental Status: He is alert and oriented to person, place, and time. Psychiatric (more content not included)... [facility] 04-14-2025 Note HNO ID: [id number] Author: LEON SOTO MA Service: ? Author Type: Residential Energy Auditor Type: Progress Notes Filed: 04/14/2025 16:24 Note Text: Fela is here today for follow up of blood pressure. He has brought home BP readings. Also 2nd Hep B vaccine today Leon Soto MA April 14, 2025 3:50 PM [facility] 03-11-2025 Instructions Coleman Hucthison MD - 03/11/2025 1:36 PM EDT - Call [phone] to schedule your screening colonoscopy with a general surgeon. - Call [phone] to schedule your home sleep study. - Go to [email or web address] to find a validated blood pressure cuff/machine. Bring your blood pressure cuff and readings to your next visit. documented in this encounter [facility] 03-11-2025 Note HNO ID: [id number] Author: COLEMAN HUTCHISON MD Service: ? Author Type: Physician Type: Progress Notes Filed: 03/11/2025 18:15 Note Text: FAMILY MEDICINE OFFICE NOTE [facility] Subjective Patient is a 44 year old male here to establish care with a new physician. Chief Complaint Establish Care There is no problem list on file for this patient. PAST MEDICAL HISTORY Diagnosis Date NEGATIVE MEDICAL HISTORY PAST SURGICAL HISTORY Procedure Laterality Date NONE FAMILY HISTORY Problem Relation Age of Onset Diabetes Mother Stroke Mother Lung Cancer Mother non small lung other (congestive heart failure) Mother Stroke Father None Sister None Sister SOCIAL HISTORY No social history on file. ALLERGIES Allergen Reactions Seasonal Allergies Other: See Comments Sneezing, nasal congestion MEDICATIONS: albuterol HFA (VENTOLIN HFA) 90 mcg/actuation inhaler Inhale 2 Puffs as instructed every 4 hours as needed for wheezing/shortness of breath. MULTIVITAMIN ORAL Take by mouth. Allergies, past surgical history, family history and past medical history were reviewed per this encounter. Medications were reviewed and verified. HPI Patient is here to establish care and for an annual wellness exam/physical. Other topic/concerns addressed today in addition to wellness exam: none Meds: multivitamin PSHx: none noted Fam Hx: as noted above Allergies: seasonal Diet: could be better. Does not eat much fast. Tries to eat fruits and vegetables. Physical activity: tries to go to the gym 2-3 times a week for about an hour or so. Sleep: disrupted sometimes, generally tries to get at least 6 hours a night. He does snore and does not feel well rested. Endorses daytime fatigue. Alcohol/tobacco/substance use: no tobacco or substance use. Consumes about 3-5 alcoholic beverages at most on a given week. Preventive care, healthcare maintenance, AND screenings: Depression AND anxiety: low risk screening today HIV (adults age 15-65 or high risk persons): ordered today Hep C (adults age 18-79 or high risk persons): previously screened and negative STI screening: low concern Lipid panel for ASCVD risk: ordered today Colorectal cancer (adults aged 45+ or family history): referral for colonoscopy Immunizations: COVID: Declines Flu: States he is UTD on this Tetanus: done today Others: Hep B today and in 1 month Review of Systems Constitutional: Negative for chills, fever and unexpected weight change. Eyes: Negative for visual disturbance. Respiratory: Negative for cough, shortness of breath and wheezing. Cardiovascular: Negative for chest pain and palpitations. Gastrointestinal: Negative for abdominal pain, constipation, diarrhea, nausea and vomiting. Genitourinary: Negative for difficulty urinating. Skin: Negative for rash. Neurological: Negative for dizziness, light-headedness and headaches. All other systems reviewed and are negative. Objective BP 136/72 (BP Site: Left Arm, BP Position: Sitting, BP Cuff Size: Regular Adult) Pulse 91 Temp 36.7 ?C (98.1 ?F) (Temporal) Ht 184.2 cm (6' 0.5) Wt 91.4 kg (201 lb 9.6 oz) SpO2 99% BMI 26.97 kg/m? Physical Exam Vitals reviewed. Constitutional: General: He is not in acute distress. Appearance: Normal appearance. He is not ill-appearing, toxic-appearing or diaphoretic. HENT: Head: Normocephalic and atraumatic. Right Ear: External ear normal. Left Ear: External ear normal. Nose: Nose normal. Eyes: Extraocular Movements: Extraocular movements intact. Pupils: Pupils are equal, round, and reactive to light. Cardiovascular: Rate and Rhythm: Normal rate and regular rhythm. Pulses: Normal pulses. Heart sounds: Normal heart sounds. No murmur heard. No gallop. Pulmonary: Effort: Pulmonary effort is normal. No respiratory distress. Breath sounds: Normal breath sounds. No wheezing, rhonchi or rales. Abdominal: General: Abdomen is flat. There is no distension. Palpations: Abdomen is soft. Tenderness: There is no abdominal tenderness. There is no guarding or rebound. Musculoskeletal: General: No deformity or signs of injury. Normal range of motion. Cervical back: Normal range of motion. Skin: General: Skin is warm and dry. Neurological: General: No focal deficit present. Mental Status: He is alert and oriented to person, place, and time. Psychiatric: Mood and Affect: Mood normal. Behavior: Behavior normal. RECENT LABS/STUDIES: No results found for this or any previous visit (from the past 2 weeks). Assessment AND Plan Wellness examination - Routine annual/physical exam and new patient visit, no other concerns addressed today. - Counseled on healthy diet and regular exercise - Counseled on alcohol intake and health risks - Patient counseled on and acknowledged vaccine benefits/risks/side effects; VIS provided: Hep B Vaccine and T (more content not included)... [facility] 03-11-2025 History of Presen t illness Narrative FAMILY MEDICINE OFFICE NOTE [facility] Patient is a 44 year old male here to establish care with a new physician. Chief Complaint Establish Care There is no problem list on file for this patient. PAST MEDICAL HISTORY Diagnosis Date NEGATIVE MEDICAL HISTORY PAST SURGICAL HISTORY Procedure Laterality Date NONE FAMILY HISTORY Problem Relation Age of Onset Diabetes Mother Stroke Mother Lung Cancer Mother non small lung other (congestive heart failure) Mother Stroke Father None Sister None Sister SOCIAL HISTORY No social history on file. ALLERGIES Allergen Reactions Seasonal Allergies Other: See Comments Sneezing, nasal congestion MEDICATIONS: albuterol HFA (VENTOLIN HFA) 90 mcg/actuation inhaler Inhale 2 Puffs as instructed every 4 hours as needed for wheezing/shortness of breath. MULTIVITAMIN ORAL Take by mouth. Allergies, past surgical history, family history and past medical history were reviewed per this encounter. Medications were reviewed and verified. HPI Patient is here to establish care and for an annual wellness exam/physical. Other topic/concerns addressed today in addition to wellness exam: none Meds: multivitamin PSHx: none noted Fam Hx: as noted above Allergies: seasonal Diet: could be better. Does not eat much fast. Tries to eat fruits and vegetables. Physical activity: tries to go to the gym 2-3 times a week for about an hour or so. Sleep: disrupted sometimes, generally tries to get at least 6 hours a night. He does snore and does not feel well rested. Endorses daytime fatigue. Alcohol/tobacco/substance use: no tobacco or substance use. Consumes about 3-5 alcoholic beverages at most on a given week. Preventive care, healthcare maintenance, & screenings: Depression & anxiety: low risk screening today HIV (adults age 15-65 or high risk persons): ordered today Hep C (adults age 18-79 or high risk persons): previously screened and negative STI screening: low concern Lipid panel for ASCVD risk: ordered today Colorectal cancer (adults aged 45+ or family history): referral for colonoscopy Immunizations: COVID: Declines Flu: States he is UTD on this Tetanus: done today Others: Hep B today and in 1 month Review of Systems Constitutional: Negative for chills, fever and unexpected weight change. Eyes: Negative for visual disturbance. Respiratory: Negative for cough, shortness of breath and wheezing. Cardiovascular: Negative for chest pain and palpitations. Gastrointestinal: Negative for abdominal pain, constipation, diarrhea, nausea and vomiting. Genitourinary: Negative for difficulty urinating. Skin: Negative for rash. Neurological: Negative for dizziness, light-headedness and headaches. All other systems reviewed and are negative. Objective BP 136/72 (BP Site: Left Arm, BP Position: Sitting, BP Cuff Size: Regular Adult) Pulse 91 Temp 36.7 C (98.1 F) (Temporal) Ht 184.2 cm (6' 0.5) Wt 91.4 kg (201 lb 9.6 oz) SpO2 99% BMI 26.97 kg/m Physical Exam Vitals reviewed. Constitutional: General: He is not in acute distress. Appearance: Normal appearance. He is not ill-appearing, toxic-appearing or diaphoretic. HENT: Head: Normocephalic and atraumatic. Right Ear: External ear normal. Left Ear: External ear normal. Nose: Nose normal. Eyes: Extraocular Movements: Extraocular movements intact. Pupils: Pupils are equal, round, and reactive to light. Cardiovascular: Rate and Rhythm: Normal rate and regular rhythm. Pulses: Normal pulses. Heart sounds: Normal heart sounds. No murmur heard. No gallop. Pulmonary: Effort: Pulmonary effort is normal. No respiratory distress. Breath sounds: Normal breath sounds. No wheezing, rhonchi or rales. Abdominal: General: Abdomen is flat. There is no distension. Palpations: Abdomen is soft. Tenderness: There is no abdominal tenderness. There is no guarding or rebound. Musculoskeletal: General: No deformity or signs of injury. Normal range of motion. Cervical back: Normal range of motion. Skin: General: Skin is warm and dry. Neurological: General: No focal deficit present. Mental Status: He is alert and oriented to person, place, and time. Psychiatric: Mood and Affect: Mood normal. Behavior: Behavior normal. RECENT LABS/STUDIES: No results found for this or any previous visit (from the past 2 weeks). Assessment & Plan Wellness examination - Routine annual/physical exam and new patient visit, no other concerns addressed today. - Counseled on healthy diet and regular exercise - Counseled on alcohol intake and health risks - Patient counseled on and acknowledged vaccine benefits/risks/side effects; VIS provided: Hep B Vaccine and TdaP - Referral placed for colonoscopy. Orders: LIPID PANEL, FASTING; Future COMPREHENSIVE METABOLIC PANEL; Future COMPLETE BLOOD COUNT AND DIFFERENTIAL; Future Encounter to establish care with new doctor - Patient establishing care today. - Reviewed medications and past medical history, including chronic medical conditions, as noted elsewhere. - Other topics or concerns as addressed elsewhere. Snoring disorder - STOP-BANG of 3, obtaining home sleep study Orders: HOME SLEEP APNEA TEST (HSAT); Future At risk for obstructive sleep apnea - STOP-BANG of 3, obtaining home sleep study Orders: HOME SLEEP APNEA TEST (HSAT); Future Elevated blood pressure reading without diagnosis of hypertension - Encouraged dietary sodium restriction/DASH diet - Recommended regular aerobic exercise. - Recommend home blood pressure monitoring, to bring results in on next visit - Encouraged avoidance of excessive alcohol intake - Goal of BP <130/80 Encounter for screening examination for other mental health and behavioral disorders - Low risk anxiety screening today. Orders: ANXIETY SCREENING Screening for depression - Low risk depression screening today. Orders: DEPRESSION SCREENING Screening for HIV (human immunodeficiency virus) Orders: HIV 1/2 COMBO WITH REFLEX TO DIFFERENTIATION; Future Encounter for lipid screening for cardiovascular disease Orders: LIPID PANEL, FASTING; Future Screening for diabetes mellitus Orders: COMPREHENSIVE METABOLIC PANEL; Future Screening for colon cancer Orders: CONSULT TO GENERAL SURGERY; Future Encounter for immunization Orders: HEP B VACCINE, 2-DOSE (HEPLISAV-B) HEP B VACCINE, 2-DOSE (HEPLISAV-B); Future TDAP VACCINE, AGE 7+ YR (ADACEL, BOOSTRIX) Return in 1 month (on 04/10/2025) for Follow up elevated BP, Hep B vaccine #2. Coleman Hutchison MD, [facility] Family Medicine & Primary Care Sports Medicine [facility] documented in this encounter [facility] 04-16-2024 History of Presen t illness Narrative Subjective HPI Nontoxic-appearing male presents urgent care chief complaint bilateral ear discomfort. Describes discomfort as more muffled/slight discomfort. Recently states he was sick. Had upper respiratory tract infection. The symptoms then improved. Presents today evaluation. No ear trauma loss hearing otorrhea. Denies any fever body aches chills productive cough chest pain shortness of breath pleuritic pain hemoptysis nausea vomiting abdominal pain change in bowel or bladder habits. Past medical history prescription medication use and allergies reviewed. .Patient presents with: Ear Pain: ERASTO ears x2 days PAST MEDICAL HISTORY Diagnosis Date NEGATIVE MEDICAL HISTORY PAST SURGICAL HISTORY Procedure Laterality Date NONE ALLERGIES Seasonal Allergies MEDICATIONS tobramycin (TOBREX) 0.3 % ophthalmic solution Use 2 Drops in the left eye three times a day for 7 days. albuterol HFA (VENTOLIN HFA) 90 mcg/actuation inhaler Inhale 2 Puffs as instructed every 4 hours as needed for wheezing/shortness of breath. MULTIVITAMIN ORAL Take by mouth. benzonatate (TESSALON PERLES) 100 mg capsule Take 1 capsule by mouth three times a day as needed for cough. (Patient not taking: Reported on 04/12/2024) FAMILY HISTORY Problem Relation Age of Onset Stroke Mother Lung Cancer Mother non small lung Stroke Father None Sister None Sister Social History Tobacco Use Smoking status: Never Smokeless tobacco: Never Substance Use Topics Alcohol use: Yes Alcohol/week: 4.0 standard drinks of alcohol Types: 4 Cans of Beer (12oz) per week Comment: occasional Drug use: No BP 142/82 Pulse 92 Temp 36.8 C (98.2 F) Resp 18 Wt 95 kg (209 lb 7 oz) SpO2 98% BMI 29.01 kg/m Review of Systems Constitutional: Negative for chills, fever and malaise/fatigue. HENT: Positive for congestion and ear pain. Negative for ear discharge, sinus pain and sore throat. Eyes: Negative for blurred vision, pain, discharge and redness. Respiratory: Negative for cough, hemoptysis, sputum production, shortness of breath, wheezing and stridor. Cardiovascular: Negative for chest pain. Gastrointestinal: Negative for abdominal pain, diarrhea, nausea and vomiting. Musculoskeletal: Negative for myalgias. Skin: Negative for itching and rash. Neurological: Negative for dizziness and headaches. Objective Physical Exam Constitutional: General: He is not in acute distress. Appearance: He is not diaphoretic. HENT: Head: Normocephalic. Jaw: No trismus, tenderness, swelling or pain on movement. Right Ear: Tympanic membrane, ear canal and external ear normal. Left Ear: Tympanic membrane, ear canal and external ear normal. Ears: Comments: Bilateral fluid noted behind TMs. TMs pearly stuart. Clear fluid. Nose: Congestion present. Mouth/Throat: Mouth: Mucous membranes are moist. Pharynx: Oropharynx is clear. Uvula midline. No pharyngeal swelling, oropharyngeal exudate, posterior oropharyngeal erythema or uvula swelling. Eyes: Conjunctiva/sclera: Conjunctivae normal. Pupils: Pupils are equal, round, and reactive to light. Cardiovascular: Rate and Rhythm: Normal rate and regular rhythm. Heart sounds: Normal heart sounds. Pulmonary: Effort: Pulmonary effort is normal. No tachypnea, accessory muscle usage or respiratory distress. Breath sounds: Normal breath sounds. No stridor. No wheezing, rhonchi or rales. Abdominal: General: There is no distension. Palpations: Abdomen is soft. Tenderness: There is no abdominal tenderness. There is no guarding or rebound. Musculoskeletal: Cervical back: Normal range of motion and neck supple. No edema, erythema, rigidity or tenderness. No pain with movement. Normal range of motion. Lymphadenopathy: Cervical: No cervical adenopathy. Skin: General: Skin is warm and dry. Neurological: Mental Status: He is alert and oriented to person, place, and time. ASSESSMENT/PLAN: 1. Eustachian tube dysfunction, bilateral - ICD9: 381.81, ICD10: H69.93 Diagnosed with eustachian tube dysfunction no evidence bacterial faction noted on exam. Treat with Flonase and Zyrtec. Patient was educated on supportive therapies. Patient will follow up with primary care provider as needed. Patient was instructed to immediately proceed to emergency room for any new, worsening, or symptoms lasting longer than anticipated. The patient's clinical presentation is otherwise unremarkable at this time. Based on exam and clinical finding, the patient is stable for discharge. Plan of care was discussed with patient. Patient verbalizes understanding and agrees to plan of care. This note was generated using Quidsi software. It may contain errors in wording, punctuation, or spelling. Angel Joyce APRN.ROLO documented in this encounter [facility] 04-12-2024 History of Presen t illness Narrative This note was created using [employer]knowledger[employer]. Subjective Fela Buckley is a 43 year old male. 43 year old male with PMH presents for eye complaints. Acute onset yesterday +left eye +redness This morning he woke up with left eyelid crusted Denies painful vision Denies trauma or injury Denies feelings of FB Denies pain Of note, earlier in week he started to experience URI sx. +nasal congestion +cough Wears glasses and contacts. Denies tobacco usage Denies using homeopathic or OTC medicines [employer] The history is provided by the patient. No russian language professor was used. Eye Problem This is a new problem. The current episode started yesterday. The problem occurs constantly. The problem has been gradually worsening. Associated symptoms include congestion and coughing. Pertinent negatives include no abdominal pain, anorexia, arthralgias, change in bowel habit, chest pain, chills, diaphoresis, fatigue, fever, headaches, joint swelling, myalgias, nausea, neck pain, numbness, rash, sore throat, swollen glands, urinary symptoms, vertigo, visual change, vomiting or weakness. Nothing aggravates the symptoms. He has tried nothing for the symptoms. The treatment provided no relief. PAST MEDICAL HISTORY Diagnosis Date NEGATIVE MEDICAL HISTORY PAST SURGICAL HISTORY Procedure Laterality Date NONE ALLERGIES Seasonal Allergies MEDICATIONS albuterol HFA (VENTOLIN HFA) 90 mcg/actuation inhaler Inhale 2 Puffs as instructed every 4 hours as needed for wheezing/shortness of breath. MULTIVITAMIN ORAL Take by mouth. tobramycin (TOBREX) 0.3 % ophthalmic solution Use 2 Drops in the left eye three times a day for 7 days. benzonatate (TESSALON PERLES) 100 mg capsule Take 1 capsule by mouth three times a day as needed for cough. (Patient not taking: Reported on 04/12/2024) FAMILY HISTORY Problem Relation Age of Onset Stroke Mother Lung Cancer Mother non small lung Stroke Father None Sister None Sister Social History Tobacco Use Smoking status: Never Smokeless tobacco: Never Substance Use Topics Alcohol use: Yes Alcohol/week: 4.0 standard drinks of alcohol Types: 4 Cans of Beer (12oz) per week Comment: occasional Drug use: No Review of Systems Constitutional: Negative for chills, diaphoresis, fatigue and fever. HENT: Positive for congestion and rhinorrhea. Negative for sinus pressure, sinus pain and sore throat. Eyes: Positive for discharge and redness. Negative for photophobia, pain, itching and visual disturbance. Respiratory: Positive for cough. Negative for apnea, choking and chest tightness. Cardiovascular: Negative for chest pain. Gastrointestinal: Negative for abdominal pain, anorexia, change in bowel habit, nausea and vomiting. Musculoskeletal: Negative for arthralgias, joint swelling, myalgias and neck pain. Skin: Negative for color change, pallor and rash. Allergic/Immunologic: Positive for environmental allergies. Negative for food allergies and immunocompromised state. Neurological: Negative for dizziness, vertigo, facial asymmetry, weakness, numbness and headaches. Hematological: Negative for adenopathy. Does not bruise/bleed easily. Psychiatric/Behavioral: Negative for agitation and behavioral problems. Objective BP 122/64 Pulse 76 Temp 36.8 C (98.3 F) Resp 16 Wt 92.5 kg (203 lb 14.8 oz) SpO2 98% BMI 28.24 kg/m Physical Exam Vitals and nursing note reviewed. Constitutional: General: He is not in acute distress. Appearance: Normal appearance. He is not ill-appearing, toxic-appearing or diaphoretic. HENT: Head: Normocephalic and atraumatic. Right Ear: External ear normal. Left Ear: External ear normal. Nose: Nose normal. No congestion or rhinorrhea. Mouth/Throat: Mouth: Mucous membranes are moist. Pharynx: Oropharynx is clear. No oropharyngeal exudate or posterior oropharyngeal erythema. Eyes: General: Right eye: No discharge. Left eye: No discharge. Extraocular Movements: Extraocular movements intact. Conjunctiva/sclera: Conjunctivae normal. Pupils: Pupils are equal, round, and reactive to light. Comments: Vision grossly intact OS injected +purulent drainage +matted eyelid debris Cardiovascular: Rate and Rhythm: Normal rate and regular rhythm. Pulses: Normal pulses. Heart sounds: Normal heart sounds. No murmur heard. No friction rub. No gallop. Pulmonary: Effort: Pulmonary effort is normal. No respiratory distress. Breath sounds: Normal breath sounds. No stridor. No wheezing, rhonchi or rales. Chest: Chest wall: No tenderness. Abdominal: General: Abdomen is flat. There is no distension. Palpations: Abdomen is soft. There is no mass. Tenderness: There is no abdominal tenderness. There is no guarding or rebound. Hernia: No hernia is present. Musculoskeletal: General: No swelling, tenderness, deformity or signs of injury. Normal range of motion. Cervical back: Normal range of motion and neck supple. No rigidity or tenderness. Right lower leg: No edema. Left lower leg: No edema. Lymphadenopathy: Cervical: No cervical adenopathy. Skin: General: Skin is warm and dry. Capillary Refill: Capillary refill takes less than 2 seconds. Coloration: Skin is not jaundiced or pale. Findings: No bruising, lesion or rash. Neurological: General: No focal deficit present. Mental Status: He is alert and oriented to person, place, and time. Cranial Nerves: No cranial nerve deficit. Sensory: No sensory deficit. Motor: No weakness. Coordination: Coordination normal. Gait: Gait normal. Deep Tendon Reflexes: Reflexes normal. Psychiatric: Mood and Affect: Mood normal. Behavior: Behavior normal. Thought Content: Thought content normal. Assessment and Plan ASSESSMENT/PLAN: 1. Conjunctivitis of left eye, unspecified conjunctivitis type - ICD9: 372.30, ICD10: H10.9 (primary diagnosis) - see medication orders - course and contagiousness issues discussed, including hand washing. - Instructed to call if high fever, development of periorbital redness or swelling, eye pain, visual changes, concerns or if symptoms persist. 2. URI, acute - ICD9: 465.9, ICD10: J06.9 - Discussed viral etiology and rationale for treatment. - Symptomatic treatment with prn analgesia - Supportive care with fluids and rest - The patient may also use OTC cough and cold meds as needed and warm salt water gargles, throat lozenges and/or OTC throat spray as needed. - Follow up in 3-5 days if symptoms persist or sooner if worsening of symptoms Dung Lynne APRN.[employer] documented in this encounter [facility] 11-10-2023 Discharge summary Note Date/Time November 10, 2023 11:00pm [facility] Medical Records Department [address] [place] [id number] Emergency Department Summary 11/10/23 MR#: [id number] Acct: [id number] Name: FELA BUCKLEY Rep #:[id number] : 1980 43 From: Roshan Gage MD PCP: Dr. Dax Emmaunel MD Status :REG ER Location: ED HPI History of Present Illness Chief Complaint: Chest Other Informant: patient Narrative Narrative: Couple hours prior to arrival, patient had sudden onset of left lateral chest pain then was felt like a popping on the inside, it is caudal to his axilla, he states this started suddenly while he was coughing. He has been coughing for 3 weeks, it has been getting better, he states he had bronchitis and it is mostly better, I given to his who now is sick with it. He denies any dyspnea but it hurts with a deep breath. No pain with movement. PFSH PFSH Medical History no medical history Home Medications naproxen 500 mg tablet 500 mg PO BID PRN #12 tabs 11/11/23 [Rx Last Taken Unknown] Allergy/AdvReac Type Severity Reaction Status Date / Time No Known Allergies Allergy Verified 11/10/23 20:28 Surgical History no surgical history Social History Smoking Status: Never smoker ROS ROS ED Constitutional Constitutional ED: Denies chills or fever(s) Eyes Eyes: Denies change in vision or diplopia ENT ENT ED: Denies rhinorrhea or sore throat Cardiovascular Cardiovascular: Reports chest pain; Denies palpitations Respiratory/Chest Respiratory/Chest: Reports cough; Denies dyspnea Gastrointestinal Gastrointestinal: Denies abdominal pain, diarrhea, nausea or vomiting Genitourinary Genitourinary ED: Denies dysuria or hematuria Musculoskeletal Musculoskeletal: Denies back pain or neck pain Integumentary Denies abscess or rash Neurologic Neurologic: Denies headache(s), paresthesias or weakness Psychiatric Psychiatric: Denies anxiety or suicidal thoughts EXAM Physical Exam Const Vital Signs: 11/10/23 20:26 11/10/23 23:23 Temperature 99.1 F Temperature Source Temporal Pulse Rate 116 H 87 Respiratory Rate 16 18 Blood Pressure 173/94 H 153/89 H Blood Pressure Mean 120 110 Pulse Ox 96 97 Oxygen Delivery Method Room Air Room Air Positive well nourished and well developed General Appearance ED: well developed and NAD HEENT Reports moist mucous membranes normocephalic and atraumatic Eyes PERRL and EOMs intact bilaterally Neck full ROM and supple Chest Wall inspection of chest normal and palpation of chest normal Chest Narrative: No reproducible tenderness in the area of interest Resp normal respiratory effort and clear to auscultation bilaterally Resp Narrative: Seems to be diminished left apex compared with the right posteriorly no splinting with deep inspiration lungs clear Cardio regular rate, regular rhythm and no murmurs Rate: tachycardic GI non-tender and non-distended Auscultation: normoactive bowel sounds Palpation: soft Back/Spine no CVA tenderness General Back: other FROM Extremity normal to inspection General Extremety ED: Negative for edema, pulses abnormal or tenderness General Extremity: Negative for edema or pulses abnormal Neuro oriented x3, CN's II-XII intact bilaterally and no sensory deficits noted Sensorium / Orientation: awake and alert Motor Exam: strength 5/5 throughout Skin no rashes or lesions noted and no wounds Heart Score History: Slightly/Non-Suspicious ECG: Normal Age: </= 45 years Risk Factors: No Risk Factors Troponin: </= Normal Limit Score: 0 MDM MDM MDM Narrative Medical decision making narrative: Given the initial exam my concern was for pneumothorax. And also in the differential is a rib fracture, subluxation, intercostal muscle strain, so sincewe were obtaining a chest x-ray I obtained a whole rib series. 5 views my interpretation including a PA chest is normal, radiology in agreement, no pneumothorax visible. He was upright for these x-rays. Given this and his resting tachycardia, as I discussed with the patient and pulmonary embolus in the differential diagnosis as well although I think less likely given the history, I think we should rule it out because of his tachycardia. EKG was obtained and my interpretation is normal except for sinus tachycardia. D-dimer and basic labs were obtained. This is all noted and normal including D-dimer ruling out pulmonary embolus. At this time, the diagnosis that makes the most sense here for the history is that there is an intercostal muscle strain. Supportive care advised, pleurisy in the differential diagnosis but the treatment would be the same. Will put him on a short course of anti-inflammatories and advised close outpatient follow-up. Initially hypertensive but on recheck he is better 150s, and after Toradol he is feeling better and heart rate improved to 80s. Lab Data Attestation: I reviewed the patient's lab results. Labs: Laboratory Results - last 24 hr 11/10/23 23:11 WBC 9.9 RBC 5.07 Hgb 15.2 Hct 47.2 MCV 93.1 MCH 30.0 MCHC 32.2 RDW Std Deviation 43.3 RDW Coeff of Stuart 12.7 Plt Count 263 MPV 8.9 Immature Gran % (Auto) 0.700 Neut % (Auto) 61.1 Lymph % (Auto) 27.1 Cochran % (Auto) 6.5 Eos % (Auto) 3.8 Baso % (Auto) 0.8 Absolute Neuts (auto) 6.1 Absolute Lymphs (auto) 2.68 Nucleated RBC % 0 D-Dimer Quant (PE/DVT) 0.29 Sodium 139 Potassium 4.1 Chloride 106 Carbon Dioxide 31.0 Anion Gap 2 L BUN 17 Creatinine 1.32 H Estim Creat Clear Calc 78.38 Est GFR (MDRD) Af Amer 76 Est GFR (MDRD) Non-Af 63 BUN/Creatinine Ratio 12.9 Glucose 110 H Calcium 8.9 Troponin I High Sens 5 Radiography Diagnostic Testing: Clinical Impression(s) from Imaging Studies Ribs w/Chest X-Ray 11/10/23 22:28 IMPRESSION: RIBS: Normal x-ray examination of the ribs. CHEST: Normal x-ray examination of the chest. Electronically Signed: Angel Noel MD at 22:43 EST Reading Location ID and State: [facility] / [place] Tel , Service support , Rhythm Strip Rhythm Strip: Sinus Tach Rate: 113 Ectopy: None EKG Initial EKG: Attestation: I personally reviewed and interpreted this EKG as follows: Interpretation: No Acute Injury Pattern and Sinus Tachycardia Discharge Plan Triage Chief Complaint: Chest Other ED Provider: Roshan Gage Dx/Rx/DC Orders Clinical Impression: Intercostal muscle strain, Bronchitis Instructions: ED Chest Wall Strain Prescriptions: New naproxen 500 mg tablet 500 mg PO BID PRN Qty: 12 0RF Primary Care Provider: Dax Emmanuel Referrals: Dax Emmanuel MD [Primary Care Provider] - 1 Week if not improving Disposition Disposition: Home, Self Care What to do if you have Problems For any increased pain, shortness of breath, bleeding, nausea or vomiting, chestpain, or any unexpected problems, contact your Primary Care Provider. Call [facility] ([phone]) or report to the closest Emergency Room. Call 911 if necessary. 11/11/23 0025 <Electronically signed by Roshan Gage MD> Cosigner Signature (if applicable): CC: Dr. Dax Emmanuel MD ~ Signed [facility] Work Phone: [phone]) 948-265312-07-2023 History of Present illness Narrative* Samaria Garcia PA - 10/31/2023 4:20 PM EST This note was created using Brev[employer]. Subjective Fela Buckley is a 43 year old male. HPI 3-year-old male presents for cough x 3 to 4 weeks. Patient states he has had a cough for the past 3 to 4 weeks. He states he was seen here about 2 weeks ago and told he likely had bronchitis. He was prescribed doxycycline. He states he finished this medication. He states that he feels better, but his cough is continuing. He states that he does cough up some phlegm. Cough is worse in the morning and at night. He denies any chest pain or shortness of breath. No wheezing. No history of COPD orasthma. He has not a smoker. PAST MEDICAL HISTORY Diagnosis Date NEGATIVE MEDICAL HISTORY PAST SURGICAL HISTORY Procedure Laterality Date NONE ALLERGIES Seasonal Allergies MEDICATIONS albuterol HFA (VENTOLIN HFA) 90 mcg/actuation inhaler Inhale 2 Puffs as instructed every 4 hours asneeded for wheezing/shortness of breath. MULTIVITAMIN ORAL Take by mouth. FAMILY HISTORY Problem Relation Age of Onset Stroke Mother Lung Cancer Mother non small lung Stroke Father None Sister None Sister Social History Tobacco Use Smoking status: Never Smokeless tobacco: Never Substance Use Topics Alcohol use: Yes Alcohol/week: 4.0 standard drinks of alcohol Types: 4 Cans of Beer (12oz) per week Comment: occasional Drug use: No Review of Systems Constitutional: Negative for chills and fever. HENT: Negative for congestion and sore throat. Respiratory: Positive for cough. Negative for shortness of breath. Gastrointestinal: Negative for diarrhea and vomiting. Objective BP 142/89 Pulse 84 Temp 37.1 C (98.7 F) Resp 20 Wt 93.9 kg (207 lb) SpO2 98% BMI 28.67 kg/m Physical Exam Vitals and nursing note reviewed. Constitutional: General: He is not in acute distress. Appearance: Normal appearance. He is not toxic-appearing. HENT: Right Ear: Tympanic membrane and ear canal normal. Left Ear: Tympanic membrane and ear canal normal. Nose: Nose normal. Mouth/Throat: Mouth: Mucous membranes are moist. Eyes: Conjunctiva/sclera: Conjunctivae normal. Cardiovascular: Rate and Rhythm: Normal rate and regular rhythm. Pulmonary: Effort: Pulmonary effort is normal. Breath sounds: Normal breath sounds. Skin: General: Skin is warm and dry. Neurological: Mental Status: He is alert. Assessment and Plan ASSESSMENT/PLAN: 1. Subacute cough - ICD9: 786.2, ICD10: R05.2 - XR CHEST 2V FRONTAL/LAT - CXR reveals no acute radiographic abnormality. - Advised patient diagnosis most likely is viral bronchitis. Advised cough can last up to 6 weeks. -Rx for prednisone. Rx for Tessalon Perles. -If symptoms do not improve in 2 weeks, follow-up with PCP. Diagnosis and treatment plan were discussed and questions were answered to the patient's satisfaction. Pt acknowledged understanding of concepts and follow up plan. Specific signs and symptoms that would indicate the need for higher level of care were discussed in detail warranting prompt ER evaluation. ROSA ISELA Delacruz [facility]No assessment information availableW[facility] Work Phone: Evaluation note* Diagnosis Subacute cough- Primary Cough [facility] Diagnosis Conjunctivitis of left eye, unspecified conjunctivitis type- Primary URI, acute Acute upper respiratory infections of unspecified site documented in [facility]* Diagnosis Eustachian tube dysfunction, bilateral- Primary [facility]* Diagnosis Subacute cough Cough documented in this [facility]* Diagnosis Wellness examination- Primary Encounter to establish care with new doctor Other reasons for seeking consultation Snoring disorder Other dyspnea and respiratory abnormality At risk for obstructive sleep apnea Elevated blood pressure reading without diagnosis of hypertension Encounter for screening examination for other mental health and behavioral disorders Screening for depression Screening for HIV (human immunodeficiency virus) Special screening examination for other specified viral diseases Encounter for lipid screening for cardiovascular disease Screening for lipoid disorders Screening for diabetes mellitus Screening for colon cancer Special screening for malignant neoplasms, colon Encounter for immunization Need for other specified prophylactic vaccination against single bacterial disease [facility]* Diagnosis Hyperbilirubinemia- Primary Jaundice, unspecified, not of documented in this [facility]* Diagnosis Elevated blood pressure reading without diagnosis of hypertension- Primary 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 Colon cancer screening- Primary Special screening for malignant neoplasms, colon [facility] Elevated blood pressure reading without diagnosis of hypertension- Primary 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 Encounter for screening colonoscopy- Primary Special screening for malignant neoplasms, colon [facility] Diagnosis Elevated blood pressure reading without diagnosis of hypertension- Primary 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 Acute cough- Primary Chest congestion Other symptoms involving respiratory system and chest URI, acute Acute upper respiratory infections of unspecified site Acute bronchitis, unspecified organism [facility] Diagnosis Elevated blood pressure reading without diagnosis of hypertension- Primary 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 Encounter for screening colonoscopy- Primary Special screening for malignant neoplasms, colon [facility] N[facility]* Outpatient Procedure (Routine) - Closed Specialty Diagnoses / Procedures Referred By Oralia t Referred To Contact [facility] Diagnoses Encounter for screening colonoscopy Procedures COLONOSCOPY SCREENING COLONOSCOPY FLX DX W/COLLJ SPEC WHEN PFRMD Carol Ann Cortez PA-C [address] [facility] [place] [address] Phone: tel: fax: [facility] [address] [place] [address] Referral ID Status Reason Start Date Expiration Date V isits Requested Visits Authorized [id number] Closed Auto-Generate d Referral 05/26/2025 05/26/2026 1 1 [facility] Chief Complaint and Reason for Visit Chief Complaint PFIZER VACCINE Chief Complaint CHEST OTHER Advance Directives No Advanced Directives Records Found Advance Directive Response Recorded Date/ Time Living Will No November 10 023 9:45pm Power of Dealer Development Manager No November 10, 2023 9:45pm Summary Purpose Family History No Family History Records FoundNo Family History Records FoundNo Family History Records Found Additional Source Comments Goals (unrecognized section and content) Goals may be documented in a n alternate sectionGoals may be documented in an alternate section Source Comments (unrecognize d section and content) In the event this informatio n is protected by the Federal Confidentiality of Alcohol and Drug Abuse Patient Records regulations: The Federal rules restrict any use of the information to criminally investigate or prosecute any alcohol or drug abuse patient.[facility] the event this information is protected by the Federal Confidentiality of Alcohol and Drug Abuse Patient Records regulations: The Federal rules restrict any use of the information to criminally investigate or prosecute any alcohol or drug abuse patient.[facility] the event this information is protected by the Federal Confidentiality of Alcohol and Drug Abuse Patient Records regulations: The Federal rules restrict any use of the information to criminally investigate or prosecute any alcohol or drug abuse patient.[facility] the event this information is protected by the Federal Confidentiality of Alcohol and Drug Abuse Patient Records regulations: The Federal rules restrict any use of the information to criminally investigate or prosecute any alcohol or drug abuse patient.[facility] the event this information is protected by the Federal Confidentiality of Alcohol and Drug Abuse Patient Records regulations: The Federal rules restrict any use of the information to criminally investigate or prosecute any alcohol or drug abuse patient.[facility] the event this information is protected by the Federal Confidentiality of Alcohol and Drug Abuse Patient Records regulations: The Federal rules restrict any use of the information to criminally investigate or prosecute any alcohol or drug abuse patient.[facility] the event this information is protected by the Federal Confidentiality of Alcohol and Drug Abuse Patient Records regulations: The Federal rules restrict any use of the information to criminally investigate or prosecute any alcohol or drug abuse patient.[facility] the event this information is protected by the Federal Confidentiality of Alcohol and Drug Abuse Patient Records regulations: The Federal rules restrict any use of the information to criminally investigate or prosecute any alcohol or drug abuse patient.[facility] the event this information is protected by the Federal Confidentiality of Alcohol and Drug Abuse Patient Records regulations: The Federal rules restrict any use of the information to criminally investigate or prosecute any alcohol or drug abuse patient.[facility] the event this information is protected by the Federal Confidentiality of Alcohol and Drug Abuse Patient Records regulations: The Federal rules restrict any use of the information to criminally investigate or prosecute any alcohol or drug abuse patient.[facility] Center[facility] the event this information is protected by the Federal Confidentiality of Alcohol and Drug Abuse Patient Records regulations: The Federal rules restrict any use of the information to criminally investigate or prosecute any alcohol or drug abuse patient.[facility] the event this information is protected by the Federal Confidentiality of Alcohol and Drug Abuse Patient Records regulations: The Federal rules restrict any use of the information to criminally investigate or prosecute any alcohol or drug abuse patient.[facility] Reason for Visit (unrecogniz ed section and content) Reason Comments Cough Chest congestion, wo rse in AM and in PM productive x 2 weeks Reason Comments Eye Problem left eye redness and drainage x 1 day Reason Comments Ear Pain ERASTO ears x2 days Reason Comments Establish Care Fela is here to [facility]. Reason Comments Colonoscopy consult Specialty Diagnoses / Procedures Referred By Contac t Referred To Contact General Surgery Diagnoses Screening for colon cancer Procedures CONSULT TO GENERAL SURGERY OFFICE/OUTPATIENT [facility] 60 MINUTES Coleman Hutchison MD [address] [place] [address] Phone: tel: fax: Fela Hoskins MD [address] [facility] [address] [place] [address] Phone: tel: fax: Referral ID Status Reason Start Date Expiration Date V isits Requested Visits Authorized [id number] Closed PCP Requested Referral 03/11/2025 03/11/2026 1 1 Reason Comments Cough Cough and congestion x 1 week Care Teams (unrecognized sec tion and content) Renal Case Manager Relationship Specialty Start Date End Date Lew Emmanuel MD [address] [place], [place] [id number] PCP - General Family Medicine 06/21/21 Team Status: Active Member Role Status Dates Dr. Dax Emmanuel MD Primary Care Provider Acti ve Team Status: Inactive Member Role Status Dates Dr. Roshan Gage MD Referring Provider, Emergency Provider Active Dr. Dax Emmanuel MD Primary Care Provider Acti ve Renal Case Manager Relationship Specialty Start Date End Date Lew Emmanuel MD [address] [place], [place] [id number] PCP - General Family Medicine 06/21/21 Renal Case Manager Relationship Specialty Start Date End Date Lew Emmanuel MD [address] [place], [place] [id number] PCP - General Family Medicine 06/21/21 Renal Case Manager Relationship Specialty Start Date End Date Lew Emmanuel MD [address] [place] [address] PCP - General Family Medicine 06/21/21 Renal Case Manager Relationship Specialty Start Date End Date Coleman Hutchison MD [address] [place] [address] PCP - General Sports Medicine 03/11/25 Renal Case Manager Relationship Specialty Start Date End Date Coleman Hutchison MD [address] [place] [address] PCP - General Sports Medicine 03/11/25 Renal Case Manager Relationship Specialty Start Date End Date Coleman Hutchison MD [address] [place] [address] PCP - General Sports Medicine 03/11/25 Renal Case Manager Relationship Specialty Start Date End Date Coleman Hutchison MD [address] [place] [address] PCP - General Sports Medicine 03/11/25 Renal Case Manager Relationship Specialty Start Date End Date Coleman Hutchison MD [address] [place] [address] PCP - General Sports Medicine 03/11/25 Renal Case Manager Relationship Specialty Start Date End Date Coleman Hutchison MD [address] [place] [address] PCP - General Sports Medicine 03/11/25 Renal Case Manager Relationship Specialty Start Date End Date Coleman Hutchison MD [address] [facility] [address] [place] [address] PCP - General Sports Medicine 03/11/25 Renal Case Manager Relationship Specialty Start Date End Date Coleman Hutchison MD [address] [facility] [address] [place] [address] PCP - General Sports Medicine 03/11/25 (unrecognized sect ion and content) No Status Records FoundNo Status Records FoundNo Status Records Found INFORMATION SOURCE (unrecogn ized section and content) DATE CREATED AUTHOR 06/11/2025 [facility] DATE CREATED AUTHOR AUTHOR'S ORGANIZ ATION 07/11/2025 [facility] DATE CREATED AUTHOR AUTHOR'S ORGANIZ ATION 09/05/2025 [facility] FOR RECORDS PERTAINING TO PATIENTS WHO ARE OR HAVE BEEN ENROLLED IN A CHEMICAL DEPENDENCY/SUBSTANCEABUSE PROGRAM, SOME INFORMATION MAY BE OMITTED. This clinical summary was aggregated from multiple sources. Caution should be exercised in using it in the provision of clinical care. This summary normalizes information from multiple sources, and as a consequence, information in this document may materially change the coding, format and clinical context of patient data. In addition, data may be omitted in some cases. CLINICAL DECISIONS SHOULD BE BASED ON THE PRIMARY CLINICAL RECORDS. [employer] provides no warranty or guarantee of the accuracy or completeness of information in this document.
[2025-11-21 15:48] LABS: D-Dimer Quantitative (DVT/PE) 0.27 FEU/ug/m (0.27-0.49)
[2025-11-21 15:56] LABS: Troponin T High Sensitivity < 6 ng/L (<=22)
[2025-11-21 15:57] LABS: Anion Gap 10 (7-18); BUN 14 mg/dL (4-19); BUN/Creat Ratio 13.5 RATIO (10-20); Calcium,Total 9.2 mg/dL (7.6-11.0); Carbon Dioxide 26.6 mmol/L (20.0-29.0); Chloride 101 mmol/L (96-106); Estimated Creatinine Clearance 101.31 ml/min (50-250); Glucose 90 mg/dL (70-99); Potassium 4.2 mmol/L (3.5-5.1)
[2025-11-21 16:03] VITALS: BP 132/87; PULSE 71
[2025-11-21 16:29] LABS: Mucous, Urine 0 SEEN /hpf (<or=2+)
[2025-11-21 16:31] LABS: Color, Urine Straw (Yellow); Glucose, Dipstick Normal (Normal); Ketone-Dipstick Negative (Negative); Leukocyte Esterase-Dipstick Negative /ul (Negative); Nitrite-Dipstick Negative (Negative); Occult Blood-Urine Negative /ul (Negative); Protein-Dipstick Negative (Negative); Specific Gravity, Urine 1.020 (1.002-1.030); Urine Bilirubin Dipstick Negative (Negative)
[2025-11-21 16:43] LABS: Red Blood Cells-Urine 0-5 SEEN /hpf (0-5); Squamous Epithelial Cells - UA 0-5 SEEN /hpf (0-5)
[2025-11-21 17:09] VITALS: BP 132/87; PULSE 70; RESP 19; O2SAT 100
[2025-11-21 17:26] LABS: Troponin T High Sens 2 HR 6 ng/L (<=22)
[2025-11-21 17:50] VITALS: BP 132/87; PULSE 70; RESP 19; TEMP 36.4; O2SAT 100
== END 2025-11-21 17:55 | disposition home or self-care (01) ==
PROVIDERS: Emergency Provider Emergency Medicine; PCP Family Medicine; Visit Provider Emergency Medicine
DX: R07.9 Chest pain, unspecified (principal); R03.0 Elevated blood-pressure reading, without diagnosis of hypertension
CPT/HCPCS: 71046; 80048; 81001; 84484; 85025; 85379; 87086; 93005; 99284; A4216